=== PATIENT | female | born 1940 | race Caucasian/White ===

== ENCOUNTER → 2016-02-18 | Outpatient (CLI) | payer OTHER ==
--- NOTE | 2016-02-18 16:51 | NM ---
Nuclear Medicine Parathyroid Imaging History: Hyperparathyroidism. Comparison: None available. Technique: 20 mCi of technetium 99m sestamibi was injected intravenously. Immediate and 3 hour delaye d imaging is performed using planar technique over the neck and upper chest. SPECT imaging was obtain ed as a trial at no charge to the patient. Findings: There is a small focus of increased uptake at the inferior aspect of the right lobe of the thyroid gland near the midline that persists on delayed imaging, suggesting parathyroid adenoma. 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
== END ==
LOC: FIMAGING 12:09
PROVIDERS: ATTEND Surgery
DX: E21.0 Primary hyperparathyroidism (principal); E07.9 Disorder of thyroid, unspecified
CPT/HCPCS: 78070; A9500

== ENCOUNTER → 2016-03-18 | Outpatient (CLI) | payer OTHER ==
--- NOTE | 2016-03-18 09:49 | NM ---
Nuclear Medicine Preoperative Parathyroid Radiotracer Injection Clinical History: 76-year-old female with hyperparathyroidism and a previous suspected adenoma along the inferomedial aspect of the right thyroid lobe. Radiopharmaceutical: 9.1 mCi of IV technetium 99m sestamibi. Findings: Dr. Dmitriy Pereira requested preoperative injection of the radiotracer for localization of th e thyroid adenoma. No images were acquired this morning. Impression: Preoperative parathyroid injection prior to parathyroid adenectomy.
== END ==
LOC: FIMAGING 08:18
PROVIDERS: ATTEND Surgery
PROC: CW5B1ZZ Nonimaging Nuclear Medicine Probe of Head and Neck using Technetium 99m (Tc-99m) (ICD-10-PCS; principal; 2016-03-18)
DX: E21.0 Primary hyperparathyroidism (principal)
CPT/HCPCS: 78808; A9500

== ENCOUNTER → 2017-06-15 | Outpatient (CLI) | payer OTHER ==
[~2017-06-15] MED LIST: GADOBUTROL 10 ML VIAL IVP ONE
== END ==
LOC: FIMAGING 11:36
PROVIDERS: ATTEND Physician Assistant
DX: R60.0 Localized edema (principal); M25.552 Pain in left hip
CPT/HCPCS: 73723; A9585

== ENCOUNTER 2017-06-21 05:28 | Inpatient (IN) | payer OTHER ==
[2017-06-21] MEDS ORDERED: LIDOCAINE 1% 2 ML INJ ID PRN (05:58)
[2017-06-21] MEDS ORDERED: LR 1,000 ML IV ONE (05:58)
--- NOTE | 2017-06-21 06:17 | PDGENHP ---
History & Physical Pertinent Past, Social, Family History: Chief Complaint. Here today for L hip MRI review. Denies any pain. Site is "oozy" but far less than a week ago. 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 Patient's Care Team. Primary Care Provider: ANDRESSA NICOLE MD ([facility]): [id number], [place] [address], , . Primary Care Provider: DANIELLE GAGE DO: [address], [place] [address], Ph , . Orthopedic Surgeon: DERRICK WYATT M.D. Patient's Pharmacies. [facility] #[id number] ([place]): [facility] [id number], , . Vitals. 2017 09:20 am. Ht:5 ft 2 in. Allergies. Reviewed Allergies. NKDA. Medications. Reviewed Medications. amoxicillin 500 mg capsule. 05/19/16 filled[facility]CRIPTION SOLUTIONS. atenolol 100 mg tablet. 04/09/15 [facility]CRIPTION SOL[facility]IONS. atenolol 50 mg tablet. 12/09/15 [facility] SOL[facility]IONS. cephALEXin 500 mg capsule. 04/20/16 filledPRESCRIPTION SOLUTIONS. citalopram 20 mg tablet. 09/01/15 filledPRESCRIPTION SOLUTIONS. citalopram 40 mg tablet. 08/30/15 filledPRESCRIPTION SOLUTIONS. donepezil 10 mg tablet. Take 1 tablet(s) every day by oral route. 04/22/17 filledPRESCRIPTION SOLUTIONS. donepezil 5 mg tablet. 07/11/15 filledPRESCRIPTION SOLUTIONS. fluticasone 50 mcg/actuation nasal spray,suspension. 01/23/16 filledPRESCRIPTION SOLUTIONS. HYDROcodone 5 mg-acetaminophen 325 mg tablet. 05/19/16 filledPRESCRIPTION SOLUTIONS. lisinopril 20 mg tablet. 12/09/15 filled[facility]CRIPTION SOLUTIONS. lovastatin 20 mg tablet. Take 1 tablet(s) every day by oral route. 04/22/17 filledPRESCRIPTION SOLUTIONS. memantine 10 mg tablet. Take 1 tablet(s) twice a day by oral route. 04/22/17 filledPRESCRIPTION SOLUTIONS. metroNIDAZOLE 500 mg tablet. 01/30/16 filledPRESCRIPTION SOLUTIONS. [place] 3. 02/14/[place] [facility] oseltamivir 75 mg capsule. 04/22/16 filledPRESCRIPTION SOLUTIONS. Prolia 60 mg/mL subcutaneous syringe. 03/12/17 filledPRESCRIPTION SOLUTIONS. sulfamethoxazole 800 mg-trimethoprim 160 mg tablet. 06/08/17 filled[facility] SOL[facility]IONS. Vitamin D3 2,000 unit tablet. Take 1 tablet(s) every day by oral route. [facility] Vaccines. None recorded. Problems. Reviewed Problems. Hip pain - Onset: 02/14/2016, Left. Fracture of neck of femur - Onset: 02/14/2016, Left. Family History. Reviewed Family History. Father- Myocardial infarction. Mother- Malignant tumor of breast. Social History. Reviewed Social History. Smoking Status: Never smoker. Non-smoker. Occupation: Retired. Chewing tobacco: none. Alcohol intake: Occasional. Caffeine intake: Occasional. Exercise level: Occasional. Education: 2 Year College. Live alone or with others?: with others. Surgical History. Reviewed Surgical History. REQUIREMENTS ANALYST History. (not configured). Obstetric History. Obstetric History not reviewed (last reviewed 02/14/2016). Past Pregnancies. None recorded. Past Medical History. Reviewed Past Medical History. Anemia: Y. Depression: Y - while in [place]. Elevated Cholesterol: Y. Hypertension: Y. Osteoporosis: Y. Osteopenia: Y. Thyroid Problems: Y - hyperthyroidism. Urinary Tract Infection: Y. Documents for Discussion. Discussed the following documents: MRI, HIP, W/WO CONTRAST - 06/15/17. Screening. None recorded. ROS. ROS as noted in the HPI. Physical Exam. None recorded. Assessment / Plan. 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 Denies any pain. Site is "oozy" but far less than a week ago. First noticed symptoms/discomfort ~1 month ago. FU with [facility] 06/17/17. 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 h/o diverticulosis. Prolia injection 2017. Last visit with me she was well. Denies feeling ill over the last few months. L hip: able to walk without pain. 1 cm x 1 cm SR, without active drainage, erythematous ulceration. 2v Pelvis 06/11/17: slight scalloping around screws. femoral neck is well-healed. L hip MRI 06/15/17: fluid collection lateral to proximal femoral diaphysis caudal to screws. possible abscess with mild adjacent inflammatory change in the muscle and subq fat. mild bone marrow signal abnormality along hardware could represent subtle osteomyelitis. Reviewed case details. I expressed concern with the fluid collection around hardware. I advise surgical hardware removal. Details discussed at length. HWR, I & D, ID consult, send off for path, and wound vac dressing. If surgery is not preferred, we could potentially observe site and treat with local wound care. Marita would like to proceed with surgical intervention at [facility] on 06/21/17 @ 0715. She was instructed to arrive 0600. We discussed infectious and noninfectious reasons for a fluid collection. I think it best to offer hardware removal and debridment with intraop samples of tissue and fluid. family at bedside. agrees to treatment plan. 25 minutes was spent in face to face contact, greater than 50% of which was spent discussing and coordinating patient care. GENERAL SURGICAL BOOKING. Procedure(s): L hip hardware removal, I and D, ID consult. Estimated surgical time: 1. Location: surgery center. x [facility] inpatient. catering administrative assistant: sunita Hardin PA-C or Ander Faith PA-C. Preop appt date: 06/16/17. Surgical date requested: ;. Surgical date verified: Surgical position: x regular table. supine. Flat fracture. traction fracture. hip scope table. beach. x lateral. sandbag. kidney posts. pegboard. hand table. mini c arm. x regular c arm. Equipment: screwdriverincisional vac. Rehab/postop equipment: crutches. CPM. Cold compression therapy. knee immobilizer. simple shoulder sling. shoulder abduction sling with pillow. Other: PCP clearance. Cardiac clearance. Special labs: Workmans comp. other. Patient to call me back re: 1. Abscess. L02.91: Cutaneous abscess, unspecified. 2. Osteomyelitis. M86.9: Osteomyelitis, unspecified
[2017-06-21] MEDS ORDERED: EPINEPHrine 1 MG/ML INJ ONE (06:19)
[2017-06-21] MEDS ORDERED: BUPIVACAINE 0.5% 30 ML SDV ONE (06:19)
--- NOTE | 2017-06-21 06:19 | PDHPUP ---
History & Physical Update H&P update statement: This history and physical update is based on an assessment of the patient which was completed after admission or registration (within 24 hours), but prior to the surgery/procedure. H&P update: H&P reviewed & patient examined (L hip hardware removal, I&D for L hip osteomyelitis.), no change in patient's condition since H&P completed (L hip )
--- NOTE | 2017-06-21 06:34 | CPEKG ---
Heart Rate: 60 RR Interval: 1000 P-R Interval: 172 QRSD Interval: 82 QT Interval: 416 QTC Interval: 416 P Epes: 72 QRS Epes: 41 T Wave Epes: 53 EKG Severity - NORMAL ECG - EKG Impression: SINUS RHYTHM Electronically Signed By: Catarino Henley 21-Jun-2017 10:06:12
[2017-06-21 06:49] LABS: PLATELET COUNT 292 10^3/uL (150-400)
--- NOTE | 2017-06-21 06:57 | PDANEPAE ---
ANE History of Present Illness left hip I and D, HWR ANE Past Medical History - Cardiovascular History Hx Hypertension: Yes Hx Arrhythmias: No Hx Chest Pain: No Hx Coronary Artery / Peripheral Vascular Disease: No Hx CHF / Valvular Disease: No Hx Palpitations: No - Pulmonary History Hx COPD: No Hx Asthma/Reactive Airway Disease: No Hx Recent Upper Respiratory Infection: No Hx Oxygen in Use at Home: No Hx Sleep Apnea: No Sleep Apnea Screening Result - Last Documented: Negative - Neurologic History Hx Cerebrovascular Accident: No Hx Seizures: No Hx Dementia: Yes Neurologic History Comment: late dementia (alzheimers) - Endocrine History Hx Diabetes: No - Renal History Hx Renal Disorders: No - Liver History Hx Hepatic Disorders: No - Neurological & Psychiatric Hx Hx Neurological and Psychiatric Disorders: Yes Neurological / Psychiatric History Comment: memory issues - Cancer History Hx Cancer: No - Congenital Disorder History Hx Congenital Disorders: No - GI History Hx Gastrointestinal Disorders: Yes Gastrointestinal History Comment: [address] diverticulosis - Other Health History Other Health History: left hip open wound. hx of sepsis r/t left hip - Chronic Pain History Chronic Pain: No - Surgical History Prior Surgeries: left hip pinning 12/25. parathyroidectomy 03/27 ANE Review of Systems Review of systems is: negative Review of Systems: - Exercise capacity Exercise capacity: <4 METS METS (RN): 2 METS ANE Patient History - Allergies Allergies/Adverse Reactions: No Known Allergies Allergy (Verified 06/18/17 10:05) - Home Medications Home Medications: Cholecalciferol Vit D3 [Vitamin D3 2000 units tab (OTC)] 2,000 units PO DAILY [Last Taken 06/18/17] Denosumab [Prolia] 60 mg SQ Q180D 06/18/17 [Last Taken 03/30/17] Donepezil HCl [Aricept] 10 mg PO HS 06/18/17 [Last Taken 06/19/17] Lovastatin [Altoprev] 20 mg PO HS 06/18/17 [Last Taken 06/19/17] Memantine HCl 10 mg PO BID 06/18/17 [Last Taken 06/20/17 08:00] [place]-3 Fatty Acids [Fish Oil 1000 mg (*)] 1,000 mg PO BID 06/18/17 [Last Taken 06/17/17] - NPO status NPO Status: no food or drink >8 hours NPO Since - Liquids (Date): 06/20/17 NPO Since - Liquids (Time): 19:00 NPO Since - Solids (Date): 06/20/17 NPO Since - Solids (Time): 19:00 - Smoking Hx Smoking Status: Never smoked - Alcohol Use Alcohol Use: Rarely - Family Anes Hx Family Anes Hx: none Family Hx Anesthesia Complications: none ANE Labs/Vital Signs - Labs Result Diagrams: 06/21/17 06:40 - Vital Signs Blood Pressure: 153/67 Heart Rate: 66 Respiratory Rate: 16 O2 Sat (%): 95 Height: 162.56 cm Weight: 65.771 kg ANE Physical Exam - Airway Neck exam: FROM Mallampati Score: Class 2 - Pulmonary Pulmonary: no respiratory distress - Cardiovascular Cardiovascular: regular rate and rhythym - ASA Status ASA Status: III ANE Anesthesia Plan Anesthesia Plan: GA w LMA
[2017-06-21] MEDS ORDERED: LIDOCAINE 2% 5 ML SDV ONE (07:29)
[2017-06-21] MEDS ORDERED: ONDANSETRON 4 MG/2 ML VIAL ONE (07:29)
[2017-06-21] MEDS ORDERED: DEXAMETHASONE 4 MG/ML VIAL ONE (07:29)
[2017-06-21] MEDS ORDERED: PROPOFOL 200 MG/20 ML VIAL ONE (07:29)
[2017-06-21] MEDS ORDERED: fentaNYL 100 MCG/2 ML INJ ONE ×3 (07:29→09:27)
[2017-06-21] MEDS ORDERED: VANCOMYCIN 1 GM VIAL ONE (07:45)
[2017-06-21] MEDS ORDERED: BACITRACIN 50,000 UNITS/10 ML SYR IRR ONE (07:56)
[2017-06-21] MEDS ORDERED: epHEDrine SULFATE 10 MG/ML SYR ONE (08:00)
[2017-06-21] MEDS ORDERED: ceFAZolin 1 GM VIAL ONE ×2 (08:11)
[2017-06-21] MEDS ORDERED: LABETALOL HCL 5 MG/ML 20 ML MDV IVP PRN (09:21)
[2017-06-21] MEDS ORDERED: NALOXONE HCL 0.4 MG/ML INJ IVP PRN (09:21)
[2017-06-21] MEDS ORDERED: ONDANSETRON 4 MG/2 ML VIAL IVP PRN ×2 (09:21→09:26)
[2017-06-21] MEDS ORDERED: ALBUTEROL 3 ML DEYVIAL IH PRN (09:21)
[2017-06-21] MEDS ORDERED: oxyCODONE IR 5 MG TAB PO PRN (09:21)
[2017-06-21] MEDS ORDERED: HYDROmorphONE/DILAUDID 2 MG/ML INJ IVP PRN (09:21)
[2017-06-21] MEDS ORDERED: ACETAMINOPHEN 500 MG TAB PO PRN (09:21)
--- NOTE | 2017-06-21 09:21 | POSTANESTH ---
Post Anesthetic Evaluation Cardiovascular Status: Normal, Stable Respiratory Status: Normal, Stable Level of Consciousness/Mental Status: Can Participate in Eval Pain Control: Adequate, Prn Tx Ordered Nausea/Vomiting Control: Adequate, Prn Tx Ordered Complications Possibly Related to Anesthesia: None Noted
[2017-06-21] MEDS ORDERED: KETOROLAC 30 MG/1 ML SDV IVP ONE (09:23)
[2017-06-21] MEDS ORDERED: KETOROLAC 30 MG/1 ML SDV ONE (09:27)
[2017-06-21] MEDS: fentaNYL 100 MCG/2 ML INJ IVP PRN ×2 (09:29→09:53)
[2017-06-21] MEDS ORDERED: D5W 1/2 NS W/ 20 KCl/L 1,000 ML IV SCH (09:30)
[2017-06-21] MEDS ORDERED: HYDROmorphONE/DILAUDID 2 MG/ML INJ ONE (10:00)
--- NOTE | 2017-06-21 11:37 | PDMN ---
Medical Necessity Medical necessity: MCG : GRG musculoskeletal sgy hardware removal with wound vac I/D, L hip with abscess/osteomyelitis, L02.91, M86.9 - M600- 3days - osteomyelitis
--- NOTE | 2017-06-21 12:14 | ASMTCMCOM ---
CM Note CM Note Notes: Patient admitted for L hip hardware removal and I&D for L hip osteomyelitis. She arrived to the floor after surgery with a wound vac. ID consult ordered. Patient is supported by a son and daughter. She will be seen by PT/OT. Case Management will follow for discharge planning. Date Signed: 06/21/2017 12:13 PM Electronically Signed By:Snehal Otoole RN
--- NOTE | 2017-06-21 13:40 | PCMIDPN ---
Assessment/Plan: Assessment/Plan: * Left hip infection status post removal of hardware: Indolent process with development of sinus tract likely originating from screw site with extension through skin recently. Etiology unclear although does have remote history of Bacteroides bacteremia as possible etiology for seeding although time courses prolonged since bacteremia occurred. Typical skin pete such as Staphylococcus aureus, streptococci, or P. Acnes all of consideration. Oropharyngeal organisms also in differential diagnosis as transient bacteremia with these pathogens is common and could seed a foreign material such as fixation screw. Will obtain blood cultures to assess for any evidence of bacteremia although previous Bactrim exposure likely will limit yield. Operative findings reviewed with Dr. Espinoza. Will continue cefazolin in interim recognizing may not cover all pathogens pending culture data. Favor this over initiation of agent such as vancomycin as would like to limit toxicity. 06/21/17 13:37 06/21/17 13:49 Subjective: Patient seen in the office on 06/17/2017 for hip drainage with MRI findings suggesting sinus tract to indwelling screw. Now admitted for incision and drainage with hardware removal. Please see my Cleo note dated 06/17/2017 for full details. Objective: Vital Signs Temp Pulse Resp BP Pulse Ox 36.5 C 73 16 117/52 L 95 06/21/17 12:40 06/21/17 12:40 06/21/17 12:40 06/21/17 12:40 06/21/17 12:40 Microbiology 06/21/17 08:15 Gram Stain - Final Hip - Eswab 06/21/17 08:15 Gram Stain - Final Hip - Eswab Laboratory Results 06/21/17 06:40 06/20/17 06/21/17 06/22/17 05:59 05:59 05:59 Intake Total 810 Output Total 20 Balance 790 Gram stain from hip specimen show white blood cells with no organisms; cultures are pending - Physical Exam General Appearance: alert, no apparent distress EENT: No scleral icterus, No conjunctival petechiae Respiratory: lungs clear, No respiratory distress Cardiac/Chest: regular rate, rhythm, systolic murmur (2/6 throughout) Extremities: other (Incision dressed postoperatively with incisional wound VAC) Abdomen: non-tender, No distended ICD10 Worksheet Patient Problems: Problems Problem Status Onset Fall Acute Hip fracture, left Acute Pyelonephritis, acute Acute
--- NOTE | 2017-06-21 14:14 | GOP ---
[f rep st] OPERATIVE REPORT DATE OF OPERATION: 06/21/2017 SURGEON: Mariama Espinoza MD IV THERAPY NURSE: Lisbeth Hardin P.A.-C., medically required for positioning of the leg during open hip johnson rdware removal and open biopsy of possibly infected left hip. PREOPERATIVE DIAGNOSIS: 1. Left hip femoral neck fracture, healed. 2. Percutaneous screws. 3. Possible chronic infection, superficial, left hip. POSTOPERATIVE DIAGNOSIS: 1. Left hip femoral neck fracture, healed. 2. Percutaneous screws. 3. Possible chronic infection, superficial, left hip. PROCEDURE PERFORMED: 1. Left hip hardware removal. 2. Irrigation and debridement, left hip. FINDINGS: ESTIMATED BLOOD LOSS: Minimal. INDICATIONS: The patient is a 77-year-old female who had a femoral neck fracture, history of Bactero ides fragilis by blood cultures perioperatively at the initial index surgery. The hip cultures were found to be negative. She did well for about a year and a half, without any wound complications. Th en about a month ago, started developing some left hip pain. Her general surgeon found a small, less than 1 cm, wound. Placed her on Bactrim. Clinical, radiographic and advanced imaging showed a poss ible fluid collection with some metal artifact. Possible osteomyelitis. The patient elects for oper ative intervention, removal hardware and cultures intraoperative cultures. DESCRIPTION OF PROCEDURE: The patient identified in the preoperative holding area. Consent, lateral ity and preoperative antibiotics were confirmed delivered. All questions were answered. She did see ID (Infectious Disease) preop. They do know about her as an inpatient. Son and daughter were at e bedside. Patient brought into the operating room. General anesthesia. Moved over to the OR table . Beanbag lateral position. Axillary roll used. Left hip was prepped up. Left hip prepped and mary ped in the usual sterile fashion. There was about a 5 x 5 mm eschar. Some granulomatous tissue. No cellulitis. No active drainage. We increased the wound size by 2. We took out the sinus tract. The fat looked very healthy. There was about a 5 mm sinus tract going down to the screws. The tissue did not look necrotic. There was no purulence. In fact, benign-looking vastus lateralis. We found the screw heads. We curettage of the screw heads and sent this for deep culture, anaerobic and aerobic cultures. We removed the screws a fairly easily. The screws were not loose. They had a good bite of bone. We took a long thin curette and went up all 3 holes. I debrided this. We ran in 9 L of LR with 6 L of straight LR and then 3 L of polymyxin bacitracin. Antibiotics were delivered after cultures were ta marcio. Because of her age, osteoporosis and her femoral neck fracture that healed, I was worried about the t racts being empty and thus we put in some Norian into the inferior and superior screw holes. I packe d in 5 cc of DBX and then finished this off with vancomycin soaked chips. We closed the vastus lateralis with 0 PDS monofilament, deep subcutaneous tissue with 2-0 monofilamen t and then 3-0 Monocryl for skin with alessia. An incisional VAC was placed to keep negative pressur e on the wound, to treat the effluent out of the wound margins. This will be used as inpatient and u nlikely sent home with her. 20 mL of Marcaine plain was injected. IMPLANTS REMOVED: Were cannulated screws x3. PATHOLOGY SENT: 1. Chronic sinus tract infection. 2. Superficial and deep cultures. IMPLANTS USED: None. COMPLICATIONS: None. DISPOSITION: Extubated, to the PACU in stable condition. /[id number]/MODL
--- NOTE | 2017-06-21 15:41 | PDHOSCONS ---
History and Physical - Chief Complaint left hip drainage - History of Present Illness 77 yo F with PMH of dementia and bacteroides bacteremia admitted for hip hardware removal in setting of drainage and infected hip. Patient states her memory is rather poor and prasad is therefore unable to provide much of a history and the majority of this history obtained per chart review. Patient notes that at this time she has no significant pain, she denies fever or chills, she states her only complaint is that she is hungry. She would like to get up and walk some more. History Information - Allergies/Home Medication List Allergies/Adverse Reactions: No Known Allergies Allergy (Verified 06/18/17 10:05) Home Medications: Cholecalciferol Vit D3 [Vitamin D3 2000 units tab (OTC)] 2,000 units PO DAILY [Last Taken 06/18/17] Denosumab [Prolia] 60 mg SQ Q180D 06/18/17 [Last Taken 03/30/17] Donepezil HCl [Aricept] 10 mg PO HS 06/18/17 [Last Taken 06/19/17] Lovastatin [Altoprev] 20 mg PO HS 06/18/17 [Last Taken 06/19/17] Memantine HCl 10 mg PO BID 06/18/17 [Last Taken 06/20/17 08:00] [place]-3 Fatty Acids [Fish Oil 1000 mg (*)] 1,000 mg PO BID 06/18/17 [Last Taken 06/17/17] I have personally reviewed and updated: family history, medical history, social history, surgical history - Past Medical History dementia, hypertension, hyperlipidemia Additional medical history: hyperparathyroid. bacteroides bacteremia - Surgical History Additional surgical history: hip fracture pinning - Family History Additional family history: breast cancer in mother - Social History Smoking Status: Never smoked Alcohol Use: Rarely Drug Use: None Additional social history: 2 children, lives at [place] Review of Systems Review of Systems: ROS: 10pt was reviewed & negative except for what was stated in HPI & below Physical Exam Physical Exam: Temp Pulse Resp BP Pulse Ox 36.3 C 66 16 118/56 L 95 06/21/17 13:55 06/21/17 13:55 06/21/17 13:55 06/21/17 13:55 06/21/17 13:55 O2 (L/minute) 2 Constitutional: no apparent distress, appears nourished Eyes: PERRL Ears, Nose, Mouth, Throat: moist mucous membranes, hearing normal Cardiovascular: regular rate and rhythym, no murmur, rub, or gallop Respiratory: no respiratory distress, no rales or rhonchi Gastrointestinal: normoactive bowel sounds, soft, non-tender abdomen Skin: warm, normal color Musculoskeletal: full muscle strength Neurologic: AAOx3 Psychiatric: interacting appropriately, not anxious, poor memory Lab Data & Imaging Review 06/21/17 06:40 WBC 4.54 10^3/uL (3.80-9.50) 06/21/17 06:40 RBC 4.66 10^6/uL (4.18-5.33) 06/21/17 06:40 Hgb 13.0 g/dL (12.6-16.3) 06/21/17 06:40 Hct 39.7 % (38.0-47.0) 06/21/17 06:40 MCV 85.2 fL (81.5-99.8) 06/21/17 06:40 MCH 27.9 pg (27.9-34.1) 06/21/17 06:40 MCHC 32.7 g/dL (32.4-36.7) 06/21/17 06:40 RDW 14.6 % (11.5-15.2) 06/21/17 06:40 Plt Count 292 10^3/uL (150-400) 06/21/17 06:40 MPV 8.8 fL (8.7-11.7) 06/21/17 06:40 Neut % (Auto) 42.7 % (39.3-74.2) 06/21/17 06:40 Lymph % (Auto) 41.0 % (15.0-45.0) 06/21/17 06:40 [place]ston % (Auto) 8.6 % (4.5-13.0) 06/21/17 06:40 Eos % (Auto) 7.3 % (0.6-7.6) 06/21/17 06:40 Baso % (Auto) 0.2 % (0.3-1.7) L 06/21/17 06:40 Nucleat RBC Rel Count 0.0 % (0.0-0.2) 06/21/17 06:40 Absolute Neuts (auto) 1.94 10^3/uL (1.70-6.50) 06/21/17 06:40 Absolute Lymphs (auto) 1.86 10^3/uL (1.00-3.00) 06/21/17 06:40 Absolute Monos (auto) 0.39 10^3/uL (0.30-0.80) 06/21/17 06:40 Absolute Eos (auto) 0.33 10^3/uL (0.03-0.40) 06/21/17 06:40 Absolute Basos (auto) 0.01 10^3/uL (0.02-0.10) L 06/21/17 06:40 Absolute Nucleated RBC 0.00 10^3/uL (0-0.01) 06/21/17 06:40 Immature Gran % 0.2 % (0.0-1.1) 06/21/17 06:40 Immature Gran # 0.01 10^3/uL (0.00-0.10) 06/21/17 06:40 Assessment & Plan Assessment: 77 yo M with hx of dementia admitted with left hip infection in setting of retained hardware now s/p explantation # left hip infection: in the setting of prior hardware that is now removed. Had prior bacteroides bacteremia but on review of ID note not clear that this is the likely culprit. Started on cefazolin for now, cultures pending, appreciate ID input. # dementia: with very limited memory, seems to be at baseline, resides in assisted living, continue memantine/donepezil # HLD: continue lovastatin # IP status, will need > 48 hours for eval/mgmt of above Patient new to my care. Old records reviewed and summarzied as above.
--- NOTE | 2017-06-21 15:47 | ASMTCMCOM ---
CM Note CM Note Notes: Spoke with patient's daughter Olivia: patient lives at [facility]. She has spent time at [facility]) after her hip replacement. Family hopes she can return to her home with home health, but they are amenable to whatever her providers recommend. Case Management will follow. Date Signed: 06/21/2017 03:47 PM Electronically Signed By:Snehal Otoole RN
[2017-06-21] MEDS: ACETAMINOPHEN 325 MG TAB PO PRN (22:56)
--- NOTE | 2017-06-22 08:58 | SOAPPROG ---
SOAP Progress Note Assessment/Plan: Assessment/Plan: POD 1 L hip hardware removal, possibly osteomyelitis, cultures pending Continue abx with ID Continue bed alarm (patient with dementia) Pain controlled with Tylenol Ambulate with walker and assistance 06/22/17 08:57 06/22/17 08:58 06/22/17 09:01 06/22/17 09:02 Subjective: 77 yo female, comfortably lying in bed. Denies pain. Walked to bathroom with assistance. Objective: Vital Signs Temp Pulse Resp BP Pulse Ox 37.1 C 73 16 139/67 H 99 06/22/17 07:32 06/22/17 07:32 06/22/17 07:32 06/22/17 07:32 06/22/17 07:32 Microbiology 06/21/17 08:15 Gram Stain - Final Hip - Eswab 06/21/17 08:15 Gram Stain - Final Hip - Eswab Laboratory Results 06/21/17 06:40 06/21/17 06/22/17 06/23/17 05:59 05:59 05:59 Intake Total 1570 Output Total 720 300 Balance 850 -[address] surgical incision with drain, no drainage NV intact ICD10 Worksheet Patient Problems: Problems Problem Status Onset Fall Acute Hip fracture, left Acute Pyelonephritis, acute Acute
[2017-06-22] MEDS ORDERED: NON-FORMULARY NEW DRUG (Memantine Hcl [Memantine Hcl] 10 MG) PO SCH (09:00)
[2017-06-22] MEDS: MEMANTINE HCL 5 MG TAB PO SCH ×2 (09:41→21:57)
[2017-06-22] MEDS: ENOXAPARIN 40 MG/0.4 ML SYR SC SCH (09:42)
[2017-06-22] MEDS: ACETAMINOPHEN 325 MG TAB PO PRN ×3 (10:45→21:56)
--- NOTE | 2017-06-22 16:47 | HOSPPROG ---
Hospitalist Progress Note Assessment/Plan: 77 yo M with hx of dementia admitted with left hip infection in setting of retained hardware now s/p explantation # left hip infection: in the setting of prior hardware that is now removed. Had prior bacteroides bacteremia but on review of ID note this may not be related. Continued on cefazolin for now, cultures pending, appreciate ID input. # dementia: with very limited memory, seems to be at baseline, resides in assisted living, continue memantine/donepezil # HLD: continue lovastatin # IP status, will need > 48 hours for eval/mgmt of above Subjective: no significant overnight events, patient denies acute issues but remains forgetful Objective: Vital Signs Temp Pulse Resp BP Pulse Ox 37.7 C 54 L 22 H 100/53 L 88 L 06/22/17 16:08 06/22/17 16:08 06/22/17 16:08 06/22/17 16:08 06/22/17 16:08 Microbiology 06/21/17 08:15 Gram Stain - Final Hip - Eswab 06/21/17 08:15 Gram Stain - Final Hip - Eswab Laboratory Results 06/21/17 06:40 06/21/17 06/22/17 06/23/17 05:59 05:59 05:59 Intake Total 1570 Output Total 720 550 Balance 850 -550 Constitutional: no apparent distress, appears nourished Eyes: PERRL Ears, Nose, Mouth, Throat: moist mucous membranes, hearing normal Cardiovascular: regular rate and rhythym, no murmur, rub, or gallop Respiratory: no respiratory distress, no rales or rhonchi Gastrointestinal: normoactive bowel sounds, soft, non-tender abdomen Skin: warm, normal color Musculoskeletal: full muscle strength Neurologic: AAOx3 Psychiatric: interacting appropriately, not anxious, poor memory ICD10 Worksheet Patient Problems: Problems Problem Status Onset Fall Acute Hip fracture, left Acute Pyelonephritis, acute Acute
--- NOTE | 2017-06-22 17:15 | ASMTCMCOM ---
CM Note CM Note Notes: PT/OT rec SNF, pt and family request [facility] at d/c. Referral sent in [facility] and Bryanna with [facility] alerted. CM to continue to follow. Date Signed: 06/22/2017 02:39 PM Electronically Signed By:KARTIK Reaves
--- NOTE | 2017-06-22 17:16 | PCMIDPN ---
Assessment/Plan: Assessment/Plan: * Left hip infection status post removal of hardware: Indolent process with development of sinus tract likely originating from screw site with extension through skin recently. See prior notes for discussion of potential etiologies. Will change to cefazolin to ceftriaxone pending additional culture data as this will provide activity against typical gram-positive pete including P. acnes. Await further culture data to assist with further antibiotic decision making. * Murmur: Son describes dental work 2 months previously. Will obtain echocardiogram to ensure no evidence of endocarditis. Known to have murmur in past as well. 06/22/17 17:14 06/22/17 17:15 Subjective: Patient with some postoperative left hip pain. Eager to be discharged from hospital. Objective: Vital Signs Temp Pulse Resp BP Pulse Ox 37.7 C 54 L 22 H 100/53 L 88 L 06/22/17 16:08 06/22/17 16:08 06/22/17 16:08 06/22/17 16:08 06/22/17 16:08 Microbiology 06/21/17 08:15 Gram Stain - Final Hip - Eswab 06/21/17 08:15 Gram Stain - Final Hip - Eswab Laboratory Results 06/21/17 06:40 06/21/17 06/22/17 06/23/17 05:59 05:59 05:59 Intake Total 1570 Output Total 720 550 Balance 850 -550 Hip cultures no growth to date Blood cultures x2 pending - Physical Exam General Appearance: alert, no apparent distress EENT: No scleral icterus, No thrush, No conjunctival petechiae Respiratory: lungs clear, No respiratory distress Cardiac/Chest: regular rate, rhythm, systolic murmur (2/6 throughout) Extremities: inflammation (Left hip tender around incisional wound VAC; no erythema) Abdomen: non-tender, No distended ICD10 Worksheet Patient Problems: Problems Problem Status Onset Fall Acute Hip fracture, left Acute Pyelonephritis, acute Acute
[2017-06-22] MEDS ORDERED: NON-FORMULARY NEW DRUG (Donepezil Hcl [Aricept] 10 MG) PO SCH (21:00)
[2017-06-22] MEDS ORDERED: LOVASTATIN 20 MG PO SCH (21:00)
[2017-06-22] MEDS: PRAVASTATIN SODIUM 20 MG TAB PO SCH (21:57)
[2017-06-22] MEDS: DONEPEZIL HCL 5 MG TAB PO SCH (21:58)
--- NOTE | 2017-06-23 08:39 | SOAPPROG ---
SOAP Progress Note Assessment/Plan: Assessment/Plan: POD 2 L hip hardware removal, possibly osteomyelitis Continue abx with ID, no growth after 36 hours (per ID, changing from cefazolin to ceftriaxone pending additional culture); will r/o endocarditis Continue bed alarm (patient with dementia) Pain controlled with Tylenol Ambulate with walker and assistance; continue with PT and OT 06/22/17 08:57 06/22/17 08:58 06/22/17 09:01 06/22/17 09:02 06/23/17 08:37 Subjective: Marita awake, sitting up in bed awaiting breakfast. Oriented to place. No acute events overnight. Objective: Vital Signs Temp Pulse Resp BP Pulse Ox 37.4 C 88 18 120/56 L 96 06/23/17 07:25 06/23/17 07:25 06/23/17 07:25 06/23/17 07:25 06/23/17 07:25 Microbiology 06/21/17 08:15 Gram Stain - Final Hip - Eswab 06/21/17 08:15 Gram Stain - Final Hip - Eswab Laboratory Results 06/21/17 06:40 06/22/17 06/23/17 06/24/17 05:59 05:59 05:59 Intake Total 1570 275 Output Total 720 1600 Balance 850 -[address] surgical incision with drain, no drainage TTP around incision NV intact ICD10 Worksheet Patient Problems: Problems Problem Status Onset Fall Acute Hip fracture, left Acute Pyelonephritis, acute Acute
[2017-06-23] MEDS: MEMANTINE HCL 5 MG TAB PO SCH ×2 (09:15→22:48)
[2017-06-23] MEDS: ACETAMINOPHEN 325 MG TAB PO PRN ×2 (09:15→18:10)
[2017-06-23] MEDS: ENOXAPARIN 40 MG/0.4 ML SYR SC SCH (09:16)
--- NOTE | 2017-06-23 12:00 | SOAPPROG ---
SOAP Progress Note Assessment/Plan: Assessment: pod 2. in good spirits. Plan: 06/23/17 11:58 incisional vac only during hospital stay WBAT with walker alessia out in 2 weeks after appreciate ID recs and hospitalist team Subjective: POD 2. in good spirits. daughter at bedside. Objective: Vital Signs Temp Pulse Resp BP Pulse Ox 36.9 C 82 16 112/62 94 06/23/17 11:30 06/23/17 11:30 06/23/17 11:30 06/23/17 11:30 06/23/17 11:30 Microbiology 06/21/17 08:15 Gram Stain - Final Hip - Eswab 06/21/17 08:15 Gram Stain - Final Hip - Eswab Laboratory Results 06/21/17 06:40 06/22/17 06/23/17 06/24/17 05:59 05:59 05:59 Intake Total 1570 275 Output Total 720 1600 Balance 850 -1325 incisional vac firm ambulating to bathroom minimal pain thigh soft ICD10 Worksheet Patient Problems: Problems Problem Status Onset Fall Acute Hip fracture, left Acute Pyelonephritis, acute Acute
--- NOTE | 2017-06-23 14:37 | ASMTCMCOM ---
CM Note CM Note Notes: Updates sent to [facility] including info pt will need 2 wks IV antibiotics. Date Signed: 06/23/2017 02:37 PM Electronically Signed By:KARTIK Reaves
[2017-06-23] MEDS ORDERED: ALTEPLASE 2 MG VIAL IVP PRN (16:58)
--- NOTE | 2017-06-23 17:09 | HOSPPROG ---
Hospitalist Progress Note Assessment/Plan: 77 yo M with hx of dementia admitted with left hip infection in setting of retained hardware now s/p explantation # left hip infection: in the setting of prior hardware that is now removed. Transitioned from ancef to ctx, cultures with ngtd, appreciate ID input. If no culture data by tomorrow will likely need to dc on planned course of IV abx. # dementia: with very limited memory, seems to be at baseline, resides in assisted living, continue memantine/donepezil # HLD: continue lovastatin # IP status, will need > 48 hours for eval/mgmt of above, will dc to [facility] Care plan discussed with ID and patients son present at bedside Subjective: no significant overnight events Objective: Vital Signs Temp Pulse Resp BP Pulse Ox 36.7 C 67 15 98/47 L 90 L 06/23/17 15:43 06/23/17 15:43 06/23/17 15:43 06/23/17 15:43 06/23/17 15:43 Microbiology 06/21/17 08:15 Gram Stain - Final Hip - Eswab 06/21/17 08:15 Gram Stain - Final Hip - Eswab Laboratory Results 06/21/17 06:40 06/22/17 06/23/17 06/24/17 05:59 05:59 05:59 Intake Total 1570 275 Output Total 720 1600 Balance 850 -1325 Constitutional: no apparent distress, appears nourished Eyes: PERRL Ears, Nose, Mouth, Throat: moist mucous membranes, hearing normal Cardiovascular: regular rate and rhythym, no murmur, rub, or gallop Respiratory: no respiratory distress, no rales or rhonchi Gastrointestinal: normoactive bowel sounds, soft, non-tender abdomen Skin: warm, normal color Musculoskeletal: full muscle strength Neurologic: AAOx3 Psychiatric: interacting appropriately, not anxious, poor memory - Time Spent With Patient Time Spent with Patient: greater than 35 minutes Time Spent with Patient: Greater than 35 minutes spent on this patients care, greater than 50% of time spent counseling, educating, and coordinating care regarding the above mentioned plan. ICD10 Worksheet Patient Problems: Problems Problem Status Onset Fall Acute Hip fracture, left Acute Pyelonephritis, acute Acute
--- NOTE | 2017-06-23 19:22 | PCMIDPN ---
Assessment/Plan: Assessment/Plan: * Left hip infection status post removal of hardware: Indolent process with development of sinus tract likely originating from screw site with extension through skin recently. Cultures remain no growth to date. Have asked lab to hold cultures in event related to P. acnes which can be slower in growth. Will continue ceftriaxone empirically with modification of antibiotic therapy according to culture data over time. Anticipate 2-6 weeks of IV therapy which will be determined by clinical course and culture findings. Plan PICC line placement and probable discharge tomorrow with outpatient follow-up in the office. * Murmur: Son describes dental work 2 months previously. Blood cultures are no growth. Await echocardiogram findings. 06/23/17 19:20 Subjective: Patient without specific complaints other than mild left hip pain. Objective: Vital Signs Temp Pulse Resp BP Pulse Ox 36.7 C 67 15 98/47 L 90 L 06/23/17 15:43 06/23/17 15:43 06/23/17 15:43 06/23/17 15:43 06/23/17 15:43 Microbiology 06/21/17 08:15 Gram Stain - Final Hip - Eswab 06/21/17 08:15 Gram Stain - Final Hip - Eswab Laboratory Results 06/21/17 06:40 06/22/17 06/23/17 06/24/17 05:59 05:59 05:59 Intake Total 1570 275 Output Total 720 1600 350 Balance 850 -1325 -350 Ceftriaxone # 2 Hip cultures no growth to date Blood cultures x2 no growth to date - Physical Exam General Appearance: alert, no apparent distress EENT: No conjunctival petechiae Respiratory: lungs clear, No respiratory distress Cardiac/Chest: regular rate, rhythm, systolic murmur (No change of murmur) Extremities: inflammation (Left hip mildly tender to palpation; incisional wound VAC in place without surrounding erythema) Abdomen: non-tender, No distended Skin: No embolic lesions ICD10 Worksheet Patient Problems: Problems Problem Status Onset Fall Acute Hip fracture, left Acute Pyelonephritis, acute Acute
--- NOTE | 2017-06-23 19:29 | PDIAF ---
- Diagnosis Diagnosis: Left hip infection Code Status: Full Code - Medication Management Discharge Medications: Medications to Continue on Transfer Cholecalciferol Vit D3 [Vitamin D3 2000 units tab (OTC)] 2,000 units PO DAILY [Last Taken 06/18/17] Denosumab [Prolia] 60 mg SQ Q180D 06/18/17 [Last Taken 03/30/17] Donepezil HCl [Aricept] 10 mg PO HS 06/18/17 [Last Taken 06/19/17] Lovastatin [Altoprev] 20 mg PO HS 06/18/17 [Last Taken 06/19/17] Memantine HCl 10 mg PO BID 06/18/17 [Last Taken 06/20/17 08:00] [place]-3 Fatty Acids [Fish Oil 1000 mg (*)] 1,000 mg PO BID 06/18/17 [Last Taken 06/17/17] Software Test Technician Antibiotics: Ceftriaxone 1 g IV daily Software Test Technician Antibiotic Stop Date: 07/08/17 Discharge Medications: Refer to the Discharge Home Medication list for PRN reason. PICC Care - Routine: Yes - Labs/Radiology CBC w/diff Date: 06/28/17 (Weekly Q Wednesday) CMP Date: 06/28/17 (Weekly Q Wednesday) CRP Date: 06/28/17 (Weekly Q Wednesday) Call or Fax Lab and Imaging Results to: Dr. Liriano, - Follow Up Care Current Providers and Referrals: Lady Calzada MD [Primary Care Provider] -
[2017-06-23] MEDS: PRAVASTATIN SODIUM 20 MG TAB PO SCH (22:48)
[2017-06-23] MEDS: DONEPEZIL HCL 5 MG TAB PO SCH (22:48)
[2017-06-24] MEDS: ACETAMINOPHEN 325 MG TAB PO PRN ×2 (06:12→10:23)
[2017-06-24] MEDS: MEMANTINE HCL 5 MG TAB PO SCH (08:58)
[2017-06-24] MEDS: ENOXAPARIN 40 MG/0.4 ML SYR SC SCH (08:58)
--- NOTE | 2017-06-24 09:33 | SOAPPROG ---
SOAP Progress Note Assessment/Plan: Assessment/Plan: POD 3 L hip hardware removal, possibly osteomyelitis Pain continued to be controlled with Tylenol D/C wound vac at discharge D/C to rehab today once PICC placed; ID to follow antibiotic treatment 06/22/17 08:57 06/22/17 08:58 06/22/17 09:01 06/22/17 09:02 06/23/17 08:37 06/24/17 09:31 06/24/17 09:34 06/24/17 09:34 Subjective: Marita is doing well, reports no pain. Resting in bed. No acute events overnight. Objective: Vital Signs Temp Pulse Resp BP Pulse Ox 37.1 C 75 16 138/71 H 94 06/24/17 08:00 06/24/17 08:00 06/24/17 08:00 06/24/17 08:00 06/24/17 08:00 Microbiology 06/21/17 08:15 Gram Stain - Final Hip - Eswab 06/21/17 08:15 Gram Stain - Final Hip - Eswab Laboratory Results 06/21/17 06:40 06/23/17 06/24/17 06/25/17 05:59 05:59 05:59 Intake Total 275 400 Output Total 1600 500 Balance -1325 -[address] surgical incision with drain, no drainage TTP around incision NV intact ICD10 Worksheet Patient Problems: Problems Problem Status Onset Fall Acute Hip fracture, left Acute Pyelonephritis, acute Acute
--- NOTE | 2017-06-24 10:09 | PDIAF ---
- Diagnosis Diagnosis: Left hip infection Code Status: Full Code - Medication Management Discharge Medications: Medications to Continue on Transfer Cholecalciferol Vit D3 [Vitamin D3 2000 units tab (OTC)] 2,000 units PO DAILY [Last Taken 06/18/17] Denosumab [Prolia] 60 mg SQ Q180D 06/18/17 [Last Taken 03/30/17] Donepezil HCl [Aricept] 10 mg PO HS 06/18/17 [Last Taken 06/19/17] Memantine HCl 10 mg PO BID 06/18/17 [Last Taken 06/20/17 08:00] [place]-3 Fatty Acids [Fish Oil 1000 mg (*)] 1,000 mg PO BID 06/18/17 [Last Taken 06/17/17] Pravastatin Sodium [Pravachol] 20 mg PO HS tab 06/24/17 [Last Taken Unknown] Longterm Antibiotics: Ceftriaxone 1 g IV daily Dispatcher Chief [employer] Antibiotic Stop Date: 07/08/17 Discharge Medications: Refer to the Discharge Home Medication list for PRN reason. PICC Care - Routine: Yes - Orders Services needed: Physical Therapy, Occupational Therapy Diet Recommendation: no restrictions on diet Diet Texture: Regular Texture Diet - Labs/Radiology CBC w/diff Date: 06/28/17 (Weekly Q Wednesday) CMP Date: 06/28/17 (Weekly Q Wednesday) CRP Date: 06/28/17 (Weekly Q Wednesday) Call or Fax Lab and Imaging Results to: Dr. Liriano, - Follow Up Care Current Providers and Referrals: Lady Calzada MD [Primary Care Provider] -
--- NOTE | 2017-06-24 11:44 | ECHO ---
[email or web address] [address] Main: [phone] Fax: [email or web address] Echocardiogram Name: REG MEYERS MR#: [id number] Study Date: 06/23/2017 Study Time: 09:52 AM Date of : 1940 Age: 77 year(s) Height: 162.6 cm (64 in.) Weight: 65.77 kg (145 lb.) BSA: 1.71 m2 Gender: Female Examination: Echo Indication: evaluate murmur Image Quality: Adequate Contrast: Requested by: Dimas Liriano BP: 120 mmHg/56 mmHg Heart Rate: Rhythm: Indication: evaluate murmur Procedure Staff Billet Heater Operator: Anna Dickens RDCS Reading Physician: Jesus Stanford MD Requesting Provider: Measurements: Chambers Valvular Assessment AV/MV Valvular Assessment TV/PV Normal Normal Normal Name Value Range Name Value Range Name Value Range Ao Kacie (2D): 3.0 cm (1.4 cm-2.6 AV Vmax: 1.60 m/s (1 m/s-1.7 PV Vmax: 0.98 m/s (0.6 m/s-0.9 cm) m/s) m/s) IVSd (2D): 1.3 cm (0.6 cm-1.1 AV meanP mmHg ( - ) PV PGmax: 4 mmHg ( - ) cm) DARA (VTI): 2.4 cm ( - ) LVDd (2D): 3.9 cm (3.9 cm-5.3 AR (PHT): 463 ms ( - ) cm) MV E Vmax: 0.82 m/s ( - ) LVDs (2D): 2.3 cm (2.1 cm-4 MV A Vmax: 1.00 m/s ( - ) cm) MV E/A: 0.82 ( - ) LVPWd (2D): 1.1 cm ( - ) MV PHT: 0.058 s ( - ) LVOTd 1.9 cm 1.9 cm mm MVA (PHT): 3.8 s ( - ) LVEF (BP): 67 % (>=55 %) RVDd(2D): 2.1 cm (1.9 cm-3.8 cmmm) Continued Measurements: Chambers Valvular Assessment AV/MV Valvular Assessment TV/PV Name Value Name Value Name Value LADs: 2.2 cm MV DecTime: 211 m/s CVP (est.): 5 mmHg LADs Lon.6 cm MV E' Septal: 0.05 m/s LA Area: 16.4 cm2 MV E/E' Septal: 15.80 LA Volume: 39 ml MV E/E' Lateral: 13.30 LA Volume Index: 22.8 ml/m2 AR Vmax: 3.71 cm/s RA Area: 10.8 cm2 Additional Vessels Patient: REG MEYERS Study Date: 06/23/2017 Page 1 of 2 09:52 AM Name Value Ao Ascendin.7 cm Inferior Vena Cava: 1.4 cm Findings: Left Ventricle: Normal size left ventricle. Borderline concentric LV hypertrophy. Normal global systolic LV function. EF is 67 %. No regional wall motion abnormality. Diastolic dysfunction is present. . Right Ventricle: Normal size right ventricle. Normal RV function. Left Atrium: The left atrium is normal in size. Right Atrium: The right atrium is normal in size. Mitral Valve: The mitral valve is normal in appearance and function. Mild mitral valve regurgitation is present. No mitral stenosis is present. Aortic Valve: The aortic valve is normal in appearance and function. Mild aortic valve regurgitation is present. No aortic valve stenosis is present. Tricuspid Valve: The tricuspid valve is normal in appearance and function. Mild tricuspid regurgitation is present. The pulmonary artery pressure is normal. Pulmonic Valve: The pulmonic valve is normal in appearance and function. There is no pulmonic regurgitation seen. Aorta: The aorta is normal. Normal size aortic root measuring 3.0 cm. Normal size ascending aorta measuring 2.7 cm. IVC: The IVC is normal sized. Pericardium: No pericardial effusion. No pleural effusion. Exam Comments: Patient supine. (No Signature Object) Patient: REG MEYERS Study Date: 06/23/2017 Page 2 of 2 09:52 AM [id number]
[2017-06-24 12:18] VITALS: BP 126/51
--- NOTE | 2017-06-24 14:39 | ASMTCMCOM ---
CM Note CM Note Notes: Pt medically stable for d/c to [facility]. Orders sent in [employer]. Stretcher transport scheduled, copy of PCS in chart. Pt son updated. Date Signed: 06/24/2017 02:39 PM Electronically Signed By:KARTIK Reaves
--- NOTE | 2017-06-24 14:40 | ASDISCHSUM ---
Discharge Information Plan Status:SNF Medically Cleared to Leave: Discharge Date:06/24/2017 01:16 PM CM D/C Disposition[facility] ADT D/C Disposition:[facility] IP Projected Discharge Date:06/24/2017 11:00 AM Transportation at D/C:ALS/BLS Discharge Delay Reason: Follow-Up Date:06/24/2017 11:00 AM Discharge Slot: Final Diagnosis: Placement Information Referral Type:*Custodial/SNF Referral ID:[facility]-[id number] [facility] Address 1:[address] Address 2: City:[place] Selection Factors: State:[place] Patient Contact Information Contact Name:RENAE Relationship:Daughter Address:[address] Work Phone: [facility] Phone: State/Zip Code:[place] [address] Email: Financial Information Financial Class:Medicare Advantage Plans Primary Plan Desc:[facility] [employer] PLANS Primary Plan Number:[id number] Secondary Plan Desc: Secondary Plan Number: Assessment Information [facility] CM Progress Note CM Note CM Note Notes: Patient admitted for L hip hardware removal and I&D for L hip osteomyelitis. She arrived to the floor after surgery with a wound vac. ID consult ordered. Patient is supported by a son and daughter. She will be seen by PT/OT. Case Management will follow for discharge planning. Date Signed: 06/21/2017 12:13 PM Electronically Signed By:Snehal Otoole RN [facility] CM Progress Note CM Note CM Note Notes: Spoke with patient's daughter Olivia: patient lives at [facility]. She has spent time at [facility] ([facility]) after her hip replacement. Family hopes she can return to her home with home health, but they are amenable to whatever her providers recommend. Case Management will follow. Date Signed: 06/21/2017 03:47 PM Electronically Signed By:Snehal Otoole RN [facility] CM Progress Note CM Note CM Note Notes: PT/OT rec SNF, pt and family request [facility] at d/c. Referral sent in [facility] and Bryanna with [facility] alerted. CM to continue to follow. Date Signed: 06/22/2017 02:39 PM Electronically Signed By:KARTIK Reaves [facility] CM Progress Note CM Note CM Note Notes: Updates sent to [facility] including info pt will need 2 wks IV antibiotics. Date Signed: 06/23/2017 02:37 PM Electronically Signed By:KARTIK Reaves [facility] CM Progress Note CM Note CM Note Notes: Pt medically stable for d/c to [facility]. Orders sent in [employer]. Stretcher transport scheduled, copy of PCS in chart. Pt son updated. Date Signed: 06/24/2017 02:39 PM Electronically Signed By:KARTIK Reaves Intervention Information Intervention Type:*IM-Signed Date of Service:06/24/2017 10:57 AM Patient Type:Inpatient Staff Member:Lorna Villanueva Hours: Discipline: Severity: Comment:
== END 2017-06-24 13:16 | DRG 498 ==
LOC: F3N 05:28
PROVIDERS: ADMIT Orthopaedic Surgery; ATTEND Orthopaedic Surgery
PROC: 0QP704Z Removal of Internal Fixation Device from Left Upper Femur, Open Approach (ICD-10-PCS; principal; 2017-06-21 07:15)
PROC: 02HV33Z Insertion of Infusion Device into Superior Vena Cava, Percutaneous Approach (ICD-10-PCS; 2017-06-24)
DX: T84.621A Infection and inflammatory reaction due to internal fixation device of left femur, initial encounter (principal); M86.152 Other acute osteomyelitis, left femur; F03.90 Unspecified dementia, unspecified severity, without behavioral disturbance, psychotic disturbance, mood disturbance, and anxiety; E78.5 Hyperlipidemia, unspecified; I10 Essential (primary) hypertension; L08.89 Other specified local infections of the skin and subcutaneous tissue
CPT/HCPCS: 97116-GP; 97161-GP; 97166-GO; 97535-GO; C1713; C1751; C1762; G8978-GP-CJ; G8979-GP-CI; G8987-GO-CK; G8988-GO-CI; J0171; J0690; J0696; J1100; J1170; J1650; J1885; J2405; J2704; J3010; J3370